=== PATIENT | male | born 1995 | race Caucasian/White ===

== ENCOUNTER 2021-06-21 20:10 | Emergency (ER) | payer OTHER ==
--- NOTE | 2021-06-21 20:43 | EDM.PDOC ---
ED HPI GENERAL MEDICAL PROBLEM - General Chief Complaint: General Stated Complaint: COVID Time Seen by Provider: 06/21/21 20:40 - History of Present Illness INITIAL COMMENTS - FREE TEXT/NARRATIVE: History of present illness: [] Patient been sick for 9 days. He has cough congestion runny nose body aches and pain across his back between his shoulder blades. Patient tested +9 days ago for COVID-19 but it was a home test. He is trying to get back to work in the [place]. He enjoys good health. He was borderline diabetic at one time but has been told he is not now. Patient not vomiting does not have diarrhea. Patient has no recent travel in the car for any distance and does not have any recent immobilization surgery and no history of family history for DVT. Review of systems: As per history of present illness and below otherwise all systems reviewed and negative. Past medical history: As per history of present illness and as reviewed below otherwise noncontributory. Surgical history: As per history of present illness and as reviewed below otherwise noncontributory. Social history: No reported history of drug or alcohol abuse. Family history: As per history of present illness and as reviewed below otherwise noncontributory. Physical exam: Constitutional - well developed, well-nourished and in no acute distress HEENT - normocephalic, no evidence of trauma - external nose and mouth normal - no mass in neck and no JVD - mucosae moist EYES - full EOM, PERRL, no icterus - no evidence of inflammation, injection, or drainage Respiratory - no respiratory distress, equal bilateral expansion, lungs clear to auscultation and no abnormal lung sounds Cardiovascular - Regular Rhythm with S1 and S2 appreciated and no murmur, gallop or rub. GI - abdomen soft without distension or organomegaly - normal bowel sounds - no guard or rebound Musculoskeletal no gross deformity of long bones or joints - no tenderness, swelling or edema Neurologic - Alert and oriented times four - CN II-XII grossly intact - motor sensory and coordination symmetrically normal Psychiatric - appropriate mood and affect with normal thought content Hematologic - No petechiae or purpura - mucosa appropriate color and sclera not pale - normal nail bed color and refill Integument - no rash or evidence of trauma - normal turgor Diagnostics: [] Therapeutics: [] Impression: [] Plan: [] Definitive disposition and diagnosis as appropriate pending reevaluation and review of above. Bilateral Upper Back Pain Score (Numeric/FACES): 5 - Related Data Allergies Allergy/AdvReac Type Severity Reaction Status Date / Time No Known Allergies Allergy Verified 06/21/21 20:37 Home Meds: Home Meds . [No Known Home Meds] 06/21/21 [History] ED ROS GENERAL - Review of Systems Review Of Systems: Comprehensive ROS is negative, except as noted in HPI. ED EXAM, GENERAL - Physical Exam Exam: See Below Free Text/Narrative:: My physical exam is in the HPI Course - Vital Signs Last Recorded V/S: Last Vital Signs Temp 36.4 C 06/21/21 20:38 Pulse 62 06/21/21 20:38 Resp 17 06/21/21 20:38 BP 124/70 06/21/21 20:38 Pulse Ox 97 06/21/21 20:38 - Orders/Labs/Meds Labs: Laboratory Tests 06/21/21 Range/Units 20:48 Influenza Type A RNA NEGATIVE (NEGATIVE) Influenza Type B RNA NEGATIVE (NEGATIVE) SARS-CoV-2 RNA (HEIDY) POSITIVE H (NEGATIVE) Departure - Departure Time of Disposition: 21:34 Disposition: Home, Self-Care 01 Condition: Good Clinical Impression: COVID-19 virus infection - Discharge Information Instructions: COVID-19 Vaccine Information, COVID-19: What to Do If You Are Sick- [facility] (09/18/2020), COVID-19: Quarantine vs. Isolation - [facility] (06/20/2020) Forms: ED Department Discharge Additional Instructions: [facility] [address] [place] [id number] [address] The following information is given to patients seen in the emergency department who are being discharged to home. This information is to outline your options for follow-up care. We provide all patients seen in our emergency department with a follow-up referral. The need for follow-up, as well as the timing and circumstances, are variable depending upon the specifics of your emergency department visit. If you don't have a primary care physician on staff, we will provide you with a referral. We always advise you to contact your personal physician following an emergency department visit to inform them of the circumstance of the visit and for follow-up with them and/or the need for any referrals to a consulting specialist. The emergency department will also refer you to a specialist when appropriate. This referral assures that you have the opportunity for follow-up care with a specialist. All of these measure are taken in an effort to provide you with optimal care, which includes your follow-up. Under all circumstances we always encourage you to contact your private physician who remains a resource for coordinating your care. When calling for follow-up care, please make the office aware that this follow-up is from your recent emergency room visit. If for any reason you are refused follow-up, please contact the [facility] Department at and asked to speak to the emergency department charge nurse. Sepsis Event Note (ED) - Focused Exam Vital Signs: Vital Signs Temp Pulse Resp BP Pulse Ox 06/21/21 20:38 36.4 C 62 17 124/70 97
[2021-06-21 21:29] LABS: CORONAVIRUS COVID-19 NAA POSITIVE (NEGATIVE); INFLUENZA A NAA NEGATIVE (NEGATIVE); INFLUENZA B NAA NEGATIVE (NEGATIVE)
== END 2021-06-21 21:52 | disposition home or self-care (01) ==
LOC: MW.ED 20:10
DX: U07.1 COVID-19 (principal)
CPT/HCPCS: 0240U; 99283

== ENCOUNTER 2023-02-11 18:30 | Emergency (ER) | payer SELFPAY | END 2023-02-11 19:10 | disposition home or self-care (01) | LOC: MW.ED 18:30 | DX: Z02.89 Encounter for other administrative examinations (principal) | CPT/HCPCS: 82947; 99281; 99283 ==

== ENCOUNTER 2024-04-01 08:16 | Emergency (ER) | payer SELFPAY ==
[2024-04-01] MEDS: Acetaminophen/HYDROcodone 325-5 MG Tab PO ONE (10:23)
== END 2024-04-01 10:43 | disposition home or self-care (01) ==
LOC: MW.ED 08:16
DX: S82.62XA Displaced fracture of lateral malleolus of left fibula, initial encounter for closed fracture (principal); Z90.49 Acquired absence of other specified parts of digestive tract; W18.30XA Fall on same level, unspecified, initial encounter
CPT/HCPCS: 29515; 73590; 73610; 73630; 99283; A9270